=== PATIENT | male | born 1970 ===

== ENCOUNTER 2021-02-05 08:58 | Outpatient (RCR) | payer SELFPAY | END 2021-02-17 | LOC: PT 08:58 | PROVIDERS: ATTEND Neurological Surgery | DX: M51.17 Intervertebral disc disorders with radiculopathy, lumbosacral region (principal) | CPT/HCPCS: 97139 ==

== ENCOUNTER → 2021-03-20 | Outpatient (RCR) | payer SELFPAY | LOC: PT 03-09 11:07 | PROVIDERS: ATTEND Neurological Surgery | DX: M51.17 Intervertebral disc disorders with radiculopathy, lumbosacral region (principal); M54.50 Low back pain, unspecified; M62.81 Muscle weakness (generalized); M53.86 Other specified dorsopathies, lumbar region ==

== ENCOUNTER 2021-04-02 09:00 | Outpatient (RCR) | payer SELFPAY | END 2021-04-20 | LOC: PT 09:00 | PROVIDERS: ATTEND Neurological Surgery | DX: M51.17 Intervertebral disc disorders with radiculopathy, lumbosacral region (principal) ==